=== PATIENT | male | born 1960 | race Caucasian/White ===

== ENCOUNTER 2016-09-01 05:56 | Emergency (ER) | payer MEDICARE ==
[2016-09-01] MEDS ORDERED: Ketorolac INJ* 60 MG/2 ML VIAL IM ONE (07:45)
--- NOTE | 2016-09-01 08:25 | RAD ---
INDICATION: LEFT side jaw pain and RIGHT-sided rib pain post fall on Friday while shoveling. COMPARISON: None. TECHNIQUE: Multidetector CT images foramen magnum to lung apices without contrast. Multiplanar reformation. REPORT: Negative for vertebral body or posterior element fracture at any level. Negative for facet subluxation at any level. Negative for paravertebral hematoma. Multilevel vertebral endplate osteophytosis most prominent at C5-C6 anteriorly. Negative for significant disc space narrowing. Multilevel mild facet joint osteoarthritis. Suggestion of early facet joint ankylosis at T1-T2 on the RIGHT. Congenitally short pedicles predispose to acquired central canal stenosis. At C3-C4, C4-C5, and C5-C6 mild dorsal disc osteophyte complexes superimposed on congenitally short pedicles results in mild acquired central canal stenosis. IMPRESSION: Negative for traumatic cervical spine injury. Multilevel mild acquired central canal stenosis.
--- NOTE | 2016-09-01 08:53 | RAD ---
Indication: Fall on Friday. LEFT side jaw and RIGHT chest/rib pain post fall. Comparison: None. Technique: Noncontrast CT vertex of skull through foramen magnum. Report: Unremarkable cerebral sulci, ventricles, and basal cisterns. Low suspicion 3 mm hypodensity at the LEFT frontal lobe periventricular white matter at the level of the hoyt radiata may represent a normal variant prominent perivascular space or chronic lacunar infarct. Negative for rodriguez matter white matter obscuration, intra or extra-axial hemorrhage, or mass effect. Unremarkable orbital contents. RIGHT orbital floor fracture with minimal inferior herniation of orbital fat appears chronic. No acute fracture of the skull base or calvarium evident. Indolent thickening of the inner table of the frontal bone noted. Negative for scalp hematoma. IMPRESSION: No evidence for traumatic brain injury or acute intracranial process. Low suspicion 3 mm hypodensity at the LEFT frontal lobe periventricular white matter at the level of the hoyt radiata may represent a normal variant prominent perivascular space or chronic lacunar infarct.
--- NOTE | 2016-09-01 09:00 | RAD ---
INDICATION: LEFT side jaw and RIGHT side rib pain post fall on Friday. COMPARISON: CT brain and cervical spine of the same date. TECHNIQUE: Multidetector CT base of the skull through mandible without contrast. Multiplanar reformation. REPORT: RIGHT orbital floor blowout fracture with minimal inferior herniation of pelvic fat appears chronic. No acute orbital margin, maxillary sinus, zygomatic arch, nasal, pterygoid plates, base of maxilla, or mandible fracture evident. Normal temporal mandibular joint alignment. Arthropathy at the bilateral temporomandibular joints with mildly irregular contour of the subchondral bone at the mandibular condyles. Negative for soft tissue hematoma. Negative for edema or inflammatory change within the orbital fat. Clear paranasal sinuses and mastoid air spaces. IMPRESSION: No acute maxillofacial fracture or temporomandibular joint articular malalignment. Negative for soft tissue hematoma.
--- NOTE | 2016-09-01 09:03 | RAD ---
Indication: RIGHT shoulder pain following fall sustained while shoveling last week. History of dislocation and relocation. Comparison: None. Technique: Internal and external rotation AP and scapular Y views RIGHT shoulder Report: Normal acromioclavicular and glenohumeral joint alignment. Moderate osteophytosis and subchondral sclerosis and cystic change at the acromioclavicular joint. Reference the internal rotation view there is suggestion of a mild Hill-Sachs impaction fracture at the posterior lateral margin of the humeral head. Mild glenohumeral joint osteophytosis. Mild soft tissue edema over the cephalad margin of the shoulder. IMPRESSION: 1. Mild age indeterminant Hill-Sachs impaction fracture. No definitive acute features. 2. Osteoarthritis.
--- NOTE | 2016-09-01 09:09 | RAD ---
INDICATION: Pain post fall. COMPARISON: April 23, 2006 TECHNIQUE: Dual energy PA and routine lateral views of the chest were obtained. REPORT: No thoracic fracture evident. Multilevel degenerative spondylosis of the thoracic spine with multilevel bridging syndesmophytes anteriorly consistent with Diffuse Idiopathic Skeletal Hyperostosis (DISH). Mild consolidation at the LEFT lung base may represent atelectasis or pneumonia. Negative for pleural effusion or pneumothorax. The heart, pulmonary vasculature, and mediastinal contours are unremarkable. IMPRESSION: 1. No traumatic thoracic injury evident. 2. Mild consolidation at the LEFT lung base may represent atelectasis or pneumonia. Follow-up chest radiograph in 4-6 weeks suggested for reassessment. In absence of resolution on short interval follow-up a chest CT would be warranted to exclude a mass.
[2016-09-01 10:15] VITALS: BP 124/109
--- NOTE | 2016-09-01 11:07 | ED ---
Laura Madsen SooYoung, scribed for Elliot Luciano MD on 09/01/16 at 0743 . Complex/Multi-Sys Presentation - HPI Summary HPI Summary: A 56 y/o M presents to ED with c/o multiple injuries onset three days ago. Pt fell backwards off a deck onto concrete below while shoveling snow. He hit his head and landed on his R-side. The shovel handle hit him on the L side of his neck and face. He dislocated his R shoulder on the fall, but a family member was able to pop-it back in. He states his shoulder feels OK now. He has R lower rib pain and bruising. Pt took three advil this AM, states having difficulty sleeping at night. Negative dyspnea. - History Of Current Complaint Chief Complaint: EDTraumaMultiple Time Seen by Provider: 09/01/16 07:26 Hx Obtained From: Patient Onset/Duration: Sudden Onset, Lasting Days, Still Present Timing: Constant Severity Currently: Moderate Severity Initially: Moderate - Allergies/Home Medications Allergies/Adverse Reactions: Allergies Allergy/AdvReac Type Severity Reaction Status Date / Time No Known Allergies Allergy Verified 08/30/15 10:05 PMH/Surg Hx/FS Hx/Imm Hx Previously Healthy: No Endocrine/Hematology History: Denies: Hx Diabetes Cardiovascular History: Reports: Hx Hypertension Denies: Hx Pacemaker/ICD Respiratory History: Reports: Hx Sleep Apnea Denies: Hx Asthma Musculoskeletal History: Reports: Hx Congenital Bone Abnormalities - Rickets, born bow legged Sensory History: Denies: Hx Contacts or Glasses, Hx Hearing Aid Opthamlomology History: Denies: Hx Contacts or Glasses Neurological History: Reports: Hx Migraine - OCCASSIONAL. MAYBE 1x MONTH, RELIEVED WITH OTC MEDS Psychiatric History: Denies: Hx Panic Disorder - Surgical History Surgery Procedure, Year, and Place: & SURGERIES ON BOTH LEGS DUE TO DEFECT [facility]. UMBILICAL HERNIA [facility]. LEFT KNEE SCOPE ANUPAM. 12/2011 BILATERAL INGINAL HERNIA REPAIRS [facility] Hx Anesthesia Reactions: No Infectious Disease History: No Infectious Disease History: Reports: Hx Hepatitis - Hep C Denies: Traveled Outside the [place] in Last 30 Days - Family History Known Family History: Negative: Cardiac Disease, Diabetes - Social History Occupation: Unemployed - [employer] Alcohol Use: Occasionally Hx Substance Use: No Substance Use Type: Reports: None Hx Tobacco Use: Yes Smoking Status (MU): Former Smoker Type: Cigarettes Have You Smoked in the Last Year: Yes - quit 1 month ago Review of Systems Positive: Other - pos: L jaw pain Positive: Other - neg: dyspnea Positive: Other - pos: pain and bruising at R lower ribs All Other Systems Reviewed And Are Negative: Yes Physical Exam Triage Information Reviewed: Yes Vital Signs On Initial Exam: Initial Vitals BP 154/115 09/01/16 06:03 Vital Signs Reviewed: Yes Appearance: Positive: Well-Appearing, No Pain Distress Skin: Positive: Warm, Skin Color Reflects Adequate Perfusion, Dry Head/Face: Positive: Normal Head/Face Inspection Eyes: Positive: Normal ENT: Positive: Normal ENT inspection Neck: Positive: Supple, Tenderness @ - L mandibular condyle and mandibular angle ; is able to open his jaw only a little Respiratory/Lung Sounds: Positive: Breath Sounds Present, Other - pos: few crackles on R Cardiovascular: Positive: RRR Abdomen Description: Positive: Nontender, Soft Bowel Sounds: Positive: Present Musculoskeletal: Positive: Pain @ - R lateral inerfior rib border. Neurological: Positive: Normal Psychiatric: Positive: Normal, Affect/Mood Appropriate - [place] Coma Scale Coma Scale Total: 15 Diagnostics - Vital Signs Vital Signs Temp Pulse Resp BP Pulse Ox 09/01/16 07:00 72 125/84 95 09/01/16 06:06 74 97 09/01/16 06:04 99.1 F 81 12 154/115 96 09/01/16 06:03 154/115 - Laboratory Lab Statement: Any lab studies that have been ordered have been reviewed, and results considered in the medical decision making process. - Radiology Shoulder XR Xray Interpretation: No Acute Changes - IMPRESSION: 1. Mild age indeterminant Hill-Sachs impaction fracture. No definitive acute features. 2. Osteoarthritis. Radiology Interpretation Completed By: Radiologist CXR Xray Interpretation: Positive (See Comments) - IMPRESSION: 1. No traumatic thoracic injury evident. 2. Mild consolidation at the LEFT lung base may represent atelectasis or pneumonia. Follow-up chest radiograph in 4-6 weeks suggested for reassessment. In absence of resolution on short interval follow- up a chest CT would be warranted to exclude a mass. Radiology Interpretation Completed By: Radiologist - CT C-SPINE CT CT Interpretation: No Acute Changes - IMPRESSION: Negative for traumatic cervical spine injury. Multilevel mild acquired central canal stenosis. CT Interpretation Completed By: Radiologist Brain CT CT Interpretation: Positive (See Comments) - IMPRESSION: No evidence for traumatic brain injury or acute intracranial process. Low suspicion 3 mm hypodensity at the LEFT frontal lobe periventricular white matter at the level of the hoyt radiata may represent a normal variant prominent perivascular space or chronic lacunar infarct. CT Interpretation Completed By: Radiologist Maxillofacial CT Interpretation: No Acute Changes - IMPRESSION: No acute maxillofacial fracture or temporomandibular joint articular malalignment. Negative for soft tissue hematoma. CT Interpretation Completed By: Radiologist Re-Evaluation - Re-Evaluation 1 Re-Evaluation Time: 09:43 Change: Improved Comment: Discussing diagnostic results with pt. Complex Multi-Symp Course/Dx Course Of Treatment: Mr. Lucas got hurt pretty bad last . He hit the left side of his jaw with the shovel handle when he fell and although he has no fracture, he is certainly in danger of developin TMJ syndrome. I talked to him about soft diet etc. He dislocated his right shoulder and had it reduced roughly in the field by a friend. He suffered a Hill-Sachs compression fx and he is given a shoulder immobilizer and F/U. He also bruised his ribs on the right. - Diagnoses Provider Diagnoses: shoulder dislocation, TMJ contusion, Rib contusion Discharge - Discharge Plan Condition: Stable Disposition: HOME Prescriptions: HYDROcodone/ACETAMIN 5-325 MG* [[place] 5-325 TAB*] 1 tab PO Q6H PRN #20 tab MDD 4 PRN Reason: Pain Patient Education Materials: Hydrocodone/Acetaminophen (By mouth), Shoulder Dislocation (ED) Referrals: Eleuterio Deng MD [Primary Care Provider] - As Soon As Possible Additional Instructions: You've injured your temporal mandibular joint on the left side of your jaw. In order for this to heal appropriately, you need to follow-up with your doctor for a referral for physical therapy; eat a soft diet; and apply warm compresses to your jaw. The documentation as recorded by the Laura capone SooYoung accurately reflects the service I personally performed and the decisions made by me, Elliot Luciano MD.
== END 2016-09-01 10:27 | disposition home or self-care (01) ==
LOC: ED 05:56
DX: S43.004A Unspecified dislocation of right shoulder joint, initial encounter (principal); S20.219A Contusion of unspecified front wall of thorax, initial encounter; S00.83XA Contusion of other part of head, initial encounter; W19.XXXA Unspecified fall, initial encounter; Y93.9 Activity, unspecified; Y92.9 Unspecified place or not applicable; R68.84 Jaw pain
CPT/HCPCS: 70450; 70486; 71020; 72125; 99282; J1885

== ENCOUNTER 2016-12-10 11:20 | Day surgery (SDC) | payer MEDICARE ==
--- NOTE | 2016-12-02 16:47 | HP ---
CC: Dr. Eleuterio Deng; Dr. George Alicia; Dr. Patiño ADMISSION HISTORY AND PHYSICAL: DATE OF SURGERY/ADMISSION: 12/10/16 PATIENT OF: Piter Cohn MD (DICTATED BY CEE RESTREPO) CHIEF COMPLAINT: Recurrent right inguinal hernia. HISTORY OF PRESENT ILLNESS: Mr. Lucas is a pleasant 56-year-old gentleman who returned to the office today to discuss a possible right inguinal hernia. The patient apparently noticed a bulge in his right groin approximately 3 weeks ago while getting out of the shower. He denied any prior straining, coughing, sneezing, or any heavy weight lifting prior to the occurrence of this hernia. He notes that he is able to push the hernia bag in whenever it protrudes out. He denies any scrotal swelling, testicular pain, changes in the bowel habits, dysuria, hematuria or any other associated symptoms. The patient is well known to our practice from prior hernia repairs including bilateral laparoscopic inguinal hernias repaired back in 2011 followed by open repair of left inguinal hernia due to recurrence. The patient returned to the office today to evaluate for possible right inguinal hernia and to discuss surgical repair. He otherwise reports doing really well since his last office visit. He denies any other hernias or masses. He has been on disability given his chronic history of bilateral hip and knee pain. He also reports that he has been doing well overall , quit smoking since last June and has been overall active given his significant orthopedic disabilities. PAST MEDICAL HISTORY: As mentioned above, significant for multiple degenerative joint disease of the pelvis and hips. He also has a history of sprained shoulders, as well as localized osteoarthritis of the knees and hips. He also has a history of chronic hepatitis C and essential hypertension. PAST SURGICAL HISTORY: Significant for umbilical hernia repair back in 2010, as well as laparoscopic bilateral inguinal hernia repair back in 2011 that was followed a year later with an open repair of a recurrent left inguinal hernia. The patient also had multiple knee arthroscopies, most recently in 2003. He also had bilateral leg surgeries back in the 60s and 70s due to history of rickets. CURRENT MEDICATIONS: His medications at home include: 1. Chlorthalidone 25 mg once daily. 2. Naproxen 500 mg once b.i.d. 3. Gabapentin 600 mg 1 to 2 tabs every day at bedtime as directed. ALLERGIES: He has no known drug allergies. FAMILY HISTORY: Noncontributory. SOCIAL HISTORY: The patient is . He lives at home. He is disabled due to his prior hips and knee pain and he used to do construction work in the past. He is a former smoker who quit 6 months ago, used to smoke half a pack per day. He drinks alcohol rarely, and denies any illicit drug use. REVIEW OF SYSTEMS: See HPI, otherwise negative. He denies any fever, chills, night sweats, or recent weight loss. No headache, dizziness, blurred vision, sore throat, or any upper respiratory symptoms. No cough, shortness of breath, palpitation, or chest pain. He denies any back pain, flank pain, dysuria, hematuria, or urinary frequency. He admits to right inguinal hernia, but denies any trouble with bowel habits, nausea, vomiting, or significant abdominal pain. His pain usually worse upon bending over. PHYSICAL EXAMINATION GENERAL: He is a pleasant, obese, middle aged gentleman, appears healthy and in no acute distress or discomfort at this time. VITAL SIGNS: His vitals today revealed a blood pressure of 128/84, pulse of 78 , respirations of 18, temperature of 98.6. He is 180 pounds on 5-foot 2-inch frame with BMI of 33. HEENT: Sclerae anicteric. PERRLA. EOMs intact. Oropharynx is pink, moist with no exudate. NECK: Supple. Trachea midline. No cervical adenopathy, thyromegaly, or JVD. LUNGS: Clear to auscultation bilaterally. No rales, wheezes, or rhonchi. HEART: Regular rate and rhythm. Normal S1 and S2 without rubs, murmurs, or gallops. BACK: With normal curvature. No CVA tenderness. ABDOMEN: Soft, round, nontender, and nondistended. The patient was examined in the standing position, revealed a moderate size right inguinal hernia that was easily reducible and nontender on examination. Scrotum was normal. No evidence of any indirect hernia through the scrotum. There are no other hernias , masses, or hepatosplenomegaly. The patient was examined again in the supine position and was able to reveal a small size deficit to the right groin, but again there was no evidence of incarceration or strangulation noted. No other hernias or masses. No hepatosplenomegaly. EXTREMITIES: Without cyanosis, clubbing, or edema. RECTAL: Deferred at this time. NEUROLOGIC: Grossly intact. IMPRESSION: A 56-year-old gentleman with recurrent right inguinal hernia. PLAN: I went on and discussed with the patient proceeding with hernia repair today. The patient was seen earlier today by Dr. Cohn who examined the patient and agreed to the plan of care. We have recommended proceeding with an open repair of right inguinal hernia with mesh given his known history of hernias and the bilateral repair that was done laparoscopically 4 years ago. The rationale, indications, risks, and benefits of performing an open right inguinal hernia were discussed with him today. The risks include but not limited to infection, bleeding, or injury to adjacent structures. He appears to understand and wishes to proceed with surgery. Given his known history of peripheral vascular disease and hypertension, we will get an EKG as well as a baseline blood work. The patient has been doing well recently and he is scheduled to see his medical doctor next month; however, we do not see any need for medical clearance since we can perform surgery under local anesthetic as well as [id number] sedation. All his questions were answered and he is scheduled to do surgery next week and we will follow him up accordingly. CEE RESTREPO [id number]/[facility] #: [id number] MTDD
[~2016-12-10 11:20] MED LIST: Buffered Lidocaine 0.9% SYRIN* 5 ML/SYR SYRINGE INTRADERM ONE; Famotidine IV* 10 MG/ML 2 ML (20 mg) IV ONE; Morphine INJ* 2 MG/ML 1 ML SYRINGE IV PRN; PROCHLORPERAZINE INJ 5 MG/ML 2 ML VIAL IV PRN; fentaNYL* 50 MCG/ML 2 ML VIAL (100 MCG VIAL) IV PRN; oxyCODONE/Acetamin 5/325 MG* TAB PO PRN
[2016-12-10] MEDS ORDERED: KETAMINE HCL* 50 MG/ML 10 ML VIAL ONE (11:23)
[2016-12-10] MEDS ORDERED: fentaNYL* 50 MCG/ML 2 ML VIAL (100 MCG VIAL) ONE ×2 (11:23→13:11)
[2016-12-10] MEDS ORDERED: Midazolam* 1 MG/ML 5 ML VIAL (5 MG) ONE (11:23)
[2016-12-10] MEDS ORDERED: Famotidine IV* 10 MG/ML 2 ML (20 mg) ONE (11:25)
[2016-12-10] MEDS ORDERED: Buffered Lidocaine 0.9% SYRIN* 5 ML/SYR SYRINGE ONE (11:26)
[2016-12-10] MEDS ORDERED: ceFAZolin 2 GM PREMIX(*) 2 GM/50 ML BAG IVPB ONE (11:26)
[2016-12-10] MEDS ORDERED: Lidocaine 1% INJ* 10 MG/ML 30 ML SDV ONE (12:28)
[2016-12-10] MEDS ORDERED: Bupivacaine 0.5% W/EPI SDV* 10 ML VIAL INJ ONE (12:28)
[2016-12-10] MEDS ORDERED: Labetalol IV* 5 MG/ML 20 ML VIAL ONE (13:02)
[2016-12-10] MEDS ORDERED: Midazolam* 1 MG/ML 2 ML VIAL (2 MG) ONE (13:11)
[2016-12-10] MEDS ORDERED: hydrALAZINE IV* 20 MG/ML VIAL ONE (13:36)
[2016-12-10] MEDS ORDERED: Lidocaine 2% PF * 5 ML VIAL ONE (13:55)
[2016-12-10] MEDS ORDERED: Propofol* 10 MG/ML 20 ML BTL IV PUSH ONE (13:55)
[2016-12-10] MEDS ORDERED: Ketorolac INJ* 30 MG/ML 1 ML VIAL ONE (14:09)
[2016-12-10] MEDS ORDERED: oxyCODONE/Acetamin 5/325 MG* TAB PO PRN (14:19)
[2016-12-10 15:02] VITALS: BP 134/81
[2016-12-10] MEDS ORDERED: oxyCODONE/Acetamin 5/325 MG* TAB ONE (15:04)
--- NOTE | 2016-12-11 14:31 | OP ---
CC: Eleuterio Deng MD * DATE OF OPERATION: 12/10/16 - [facility] DATE OF : 58 SURGEON: Piter Cohn MD. SAIL FINISHER MACHINE: CEE Rodriguez ANESTHESIOLOGIST: Dr. Ahn. ANESTHESIA: Local MAC. PRE-OP DIAGNOSIS: Recurrent right inguinal hernia. POST-OP DIAGNOSIS: Recurrent right inguinal hernia. OPERATIVE PROCEDURE: Open repair right inguinal hernia with mesh. ESTIMATED BLOOD LOSS: Minimal. IV FLUIDS: Crystalloids. SPECIMEN: None. DRAINS: None. COMPLICATIONS: None. COUNTS: The instrument, needle, and sponge counts were correct. DESCRIPTION OF PROCEDURE: The patient was brought to the operating room, placed on the table supine. Sequential compression devices were placed in both lower extremities. Intravenous sedation was administered. The abdomen was prepped and draped in the usual sterile fashion. Time-out was performed. Local anesthetic was infiltrated as a field block in the groin on the right side. An oblique incision was created and the subcutaneous tissues were divided with cautery. External oblique aponeurosis was divided along the line of its fibers due to the superficial ring. Inspection beneath this revealed no evident nerve. The aponeuroses were reflected back upon themselves and retractors placed. The contents of the inguinal canal were isolated at the level of the pubic tubercle with a quarter-inch Nell drain. A direct inguinal hernia was noted and upon inspection of the cord structures, there was noted to be indirect inguinal hernia as well. The indirect sac was elevated. Cord structures were freed from it. The sac was dissected back to the deep ring, twisted upon itself, ligated with 2-0 Polysorb suture ligature and then divided. The proximal sac was allowed to retract into the abdominal cavity. A polypropylene plug and patch was then fashioned from 6 x 6 inch polypropylene and the plug was placed into the deep space and sutured to the overlying musculare with 2-0 Polysorb. The on-lay patch was positioned and it was sutured to the pubic tubercle, conjoint tendon and shelving edge of the inguinal ligament with interrupted 2-0 Polysorb sutures. The mesh was cut laterally to allow egress of the spermatic cord and the mesh was reconstituted laterally with 2-0 Surgipro. The lateral tails were tucked beneath external oblique aponeurosis, which was then closed with 2-0 Polysorb. The subcutaneous tissues were closed with 3-0 Polysorb in an interrupted fashion. The skin was closed with 4-0 Monocryl in a subcuticular fashion. Steri -Strips were applied. The patient tolerated the procedure well. He was awakened and transferred to recovery room in stable condition. [id number]/[facility] #: [id number] MTDD
== END 2016-12-10 15:25 | disposition home or self-care (01) ==
LOC: OR 11:20
PROVIDERS: ATTEND Surgery
DX: K40.91 Unilateral inguinal hernia, without obstruction or gangrene, recurrent (principal); I10 Essential (primary) hypertension; B18.2 Chronic viral hepatitis C; M19.90 Unspecified osteoarthritis, unspecified site; Z87.891 Personal history of nicotine dependence
CPT/HCPCS: A9270-GY; C1781; J0360; J0690; J1885; J2001; J2250; J2704; J3010

== ENCOUNTER 2017-06-06 13:40 | Emergency (ER) | payer MEDICARE ==
[2017-06-06 13:51] VITALS: BP 165/98
[2017-06-06] MEDS ORDERED: Triamcinolone Acetonide* 40 MG/ML 1 ML VIAL IM ONE (13:59)
--- NOTE | 2017-06-06 14:18 | UC ---
Skin Complaint HPI - HPI Summary HPI Summary: 57 yo male squeezed a cyst on his back now red and swollen no fever no hx MRSA - History of Current Complaint Chief Complaint: UCSkin Time Seen by Provider: 06/06/17 13:55 Stated Complaint: SORE ON BACK Hx Obtained From: Patient Onset/Duration: Gradual Onset, Lasting Days Timing: Constant Onset Severity: Mild Current Severity: Mild Character: Swelling, Pain, Redness, Raised Aggravating Factor(s): Touch - Allergy/Home Medications Allergies/Adverse Reactions: Allergies Allergy/AdvReac Type Severity Reaction Status Date / Time No Known Allergies Allergy Verified 06/06/17 13:51 Home Medications: Home Medications Tramadol HCl [Tramadol HCl ER] 1 tab PO BID PRN 06/06/17 [History Confirmed ] Review of Systems Constitutional: Negative Skin: Negative Eyes: Negative ENT: Negative Respiratory: Negative Cardiovascular: Negative Gastrointestinal: Negative Genitourinary: Negative Motor: Negative Neurovascular: Negative Musculoskeletal: Negative Neurological: Negative Psychological: Negative Is Patient Immunocompromised?: No All Other Systems Reviewed And Are Negative: Yes PMH/Surg Hx/FS Hx/Imm Hx Previously Healthy: Yes Cardiovascular History: Hypertension - Surgical History Surgical History: Yes Surgery Procedure, Year, and Place: & SURGERIES ON BOTH LEGS DUE TO DEFECT [facility]. UMBILICAL HERNIA [facility]. LEFT KNEE SCOPE ANUPAM. 12/2011 BILATERAL INGINAL HERNIA REPAIRS-SEVERAL TIMES [facility]. 2017 right inguinal hernia repair with mesh. Right Shoulder Surgery - Family History Known Family History: Positive: Hypertension Negative: Cardiac Disease, Diabetes - Social History Alcohol Use: Occasionally Alcohol Amount: 1-2 drinks a week Substance Use Type: None Smoking Status (MU): Light Every Day Tobacco Smoker Type: Cigarettes Amount Used/How Often: 6-7cig/day Have You Smoked in the Last Year: Yes - quit 1 month ago When Did the Patient Quit Smoking/Using Tobacco: 02/2017 - Immunization History Most Recent Influenza Vaccination: NOT UTD Physical Exam Triage Information Reviewed: Yes Appearance: Well-Appearing, No Pain Distress, Well-Nourished Vital Signs: Initial Vital Signs Temp 99.1 F 06/06/17 13:45 Pulse 74 06/06/17 13:45 Resp 16 06/06/17 13:45 BP 165/98 06/06/17 13:45 Pulse Ox 97 12/22/17 13:45 Vital Signs Reviewed: Yes ENT: Positive: Hearing grossly normal. Negative: Nasal congestion, Nasal drainage, Trismus, Hoarse voice Neck: Positive: Supple Respiratory: Positive: Lungs clear, Normal breath sounds, No respiratory distress Cardiovascular: Positive: RRR, No Murmur Musculoskeletal: Positive: ROM Limited @ - right shoulder Neurological: Positive: Alert Psychological Exam: Normal Course/Dx - Course Course Of Treatment: 10 mg kenalog injected intralesionally by me. pt informed that he needs to return for worsening symptoms. may need cyst removed in 3-6 months - Diagnoses Provider Diagnoses: inlammed sebacious cyst right back Discharge - Discharge Plan Condition: Stable Disposition: HOME Prescriptions: DOXYcycline CAP(*) [DOXYcycline 100MG CAP(*)] 100 mg PO BID #20 cap Patient Education Materials: Epidermal Inclusion Cysts (ED) Referrals: Eleuterio Deng MD [Primary Care Provider] - Additional Instructions: warm compresses don't squeeze recheck in 3-5 days if not better Images Front/Back of Body, Lg (Reagan): 1 - inlammed sebacious cyst with overlying redness
--- OUTSIDE RECORDS SUMMARY | 2017-06-06 14:37 | XMS REPORT ---
:1960 External Reference #:[id number] Author Organization [facility] Address [address] [address] Phone [phone] Care Team Providers Name Role Phone Eleuterio Deng III, MD Primary Care Physician Unavailable Payers Type Date Identification Numbers Payment Provider Subscriber Medicare Primary Effective: Policy Number: Medicare Tommie Lucas 2015 [id number] PayID: [id number] [address] [place] [address] Commercial Effective: Policy Number: Total Care/Rupert Lucas 2013 [id number] [facility] Expires: 2015 PayID: [id number] [address] [address] [place] [address] Problems Date Description Provider Status Onset: 11/28/2011 Inguinal hernia without obstruction Eleuterio Deng M.D. Active AND without gangrene Onset: 10/05/2013 Benign essential hypertension Eleuterio Deng M.D. Active Onset: 07/05/2014 Chronic hepatitis C Eleuterio Deng M.D. Active Onset: 01/04/2015 Localized osteoarthrosis Gloria Patiño M.D. Active Onset: 01/04/2015 Degenerative joint disease of pelvis Gloria Patiño M.D. Active Onset: 09/09/2016 Localized, primary osteoarthritis Gloria Patiño M.D. Active Onset: 09/17/2016 Closed traumatic dislocation of joint George Alicia MD Active of shoulder region Onset: 09/17/2016 Sprain of shoulder and upper arm George Alicia MD Active Onset: 09/17/2016 Injury of shoulder region George Alicia MD Active Onset: 04/22/2017 Bicipital tenosynovitis George Alicia MD Active Onset: 04/22/2017 Full thickness rotator cuff tear George Alicia MD Active Family History Date Family Member(s) Problem(s) Comments General Heart Disease Siblings 6 siblings; 3 brother, 3 sisters 3 brothers all with HTN Social History Type Date Description Comments Marital Status Occupation Disabled due to hips and knees Previously did construction work ETOH Use Rarely consumes alcohol Smoking Patient is a former smoker Quit Jun 2016; less than 10/day then. Max <1ppd. Began age 29 Exercise Type/Frequency Exercises regularly walks Allergies, Adverse Reactions, Alerts Date Description Reaction Status Severity Comments 11/28/2011 NKDA active Medications Medication Date Status Form Strength Qnty SIG Indications Ordering Provider Tramadol HCL 05/22/ Active Tablets 50mg 30tabs 1-2 2016 tablet by riya Alicia MD every 12 hours as needed pain Percocet 04/22/ Active Tablets 5-325mg 45tabs take 1 M75.121 2016 tabs as ramesh Alicia MD for pain every 4 hours. do not combine with tylenol Percocet 04/07/ Active Tablets 5-325mg 30tabs 1 tab by eris Alicia, every 4-6 MD hours as needed pain Keflex 04/07/ Active Capsules 500mg 12caps take 1 2016 tab by riya Alicia MD four times a day x 3 days Chlorthalidone 06/23/ Active Tablets 25mg 30tabs 1 by R03.0 Eleuterio Deng, daily Blessing Naproxen / Active 500mg 1 tablet Unknown 0000 bid Gabapentin / Active Tablets 600mg 1-2 tabs Unknown 0000 by mouth every day at bedtime as directed Oxycodone-Acetam 12/02/ Hx Tablets 5-325mg 15tabs 1-2 tabs Piter inophen 2017 - every 6 M[place], 01/12/ hours as , FACS 2016 needed for pain Diazepam 04/14/ Hx Tablets 5mg 2tabs 1 tab tid Eleuterio Yun 2013 - Sowmya, 04/27/ M.D. 2013 Percocet 02/07/ Hx Tablets 5-325mg 80tabs No Longer Gloria 2014 - Taking Haroon, This. 1-2 M.D. 2013 tabs by mouth bid as needed for pain Ibuprofen // Hx Capsules 600mg 1 tab in Unknown 0000 - am, 1 tab 04/27/ in pm 2013 Ciprofloxacin /00/ Hx Tablets 500mg 14tabs 1 po bid Unknown HCL 0000 - 2013 Hydrocodone/Acet / Hx Tablets 5-325mg 40tabs 1-2 po Unknown aminophen 0000 - qid prn pain 2013 Naproxen / Hx Tablets 500mg 30tabs 1 po bid Unknown 0000 - prn 2013 Sovaldi // Hx Tablets 400mg Unknown 0000 - 2013 Pegasys Proclick / Hx Solution 180mcg/0.5 Unknown 0000 - ML 2013 Ribavirin /00/ Hx Tablets 200mg Unknown 0000 - 2013 Oxycontin /00/ Hx Tab ER 12H 10mg 28tabs by mouth Unknown 0000 - Abuse-Det every 12 1112/ hours 2013 Gabapentin /00/ Hx Capsules 300mg 120cap 1 3-4 Unknown 0000 - s times po 10/28/ prn 2016 Medications Administered in Office Medication Date Status Form Strength Qnty SIG Indications Ordering Provider Triamcinolone 10/29/ Administered Injection Zaneb (Kenalog) 2016 MD Ravin Depomedrol 40MG 09/09/ Administered Injection Gloria 2016 Blessing Patiño Influenza Virus 02/28/ Administered Injection Unknown Vaccine 2014 Depomedrol 80MG 02/07/ Administered Injection Gloria 2013 Blessing Patiño Immunizations CPT Code Status Date Vaccine Lot # [id number] Given 10/05/2013 Pneumonia Vaccine [id number] Given 06/23/2013 Influenza Virus 3Yrs & Over [id number] Given 09/14/2012 Tetanus And Diptheria (Td) For Adult Use Preservative Free Vital Signs Date Vital Result Comment 05/27/2017 Height 62 inches 5'2" Weight 183.00 lb BP Systolic 134 mmHg BP Diastolic 82 mmHg Respiratory Rate 20 /min Pain Level 9 BMI (Body Mass Index) 33.5 kg/m2 04/22/2017 Height 62 inches 5'2" Weight 183.00 lb Heart Rate 70 /min Respiratory Rate 18 /min Body Temperature 98.3 F Pain Level 8 BMI (Body Mass Index) 33.5 kg/m2 03/11/2017 Height 62 inches 5'2" Weight 183.00 lb BP Systolic 130 mmHg BP Diastolic 82 mmHg Respiratory Rate 18 /min Body Temperature 97.2 F Pain Level 8 BMI (Body Mass Index) 33.5 kg/m2 01/13/2017 Height 62 inches 5'2" Weight 199.00 lb Heart Rate 76 /min BP Systolic Sitting 144 mmHg BP Diastolic Sitting 82 mmHg Body Temperature 98.0 F O2 % BldC Oximetry 94 % BMI (Body Mass Index) 36.4 kg/m2 12/18/2016 Height 62 inches 5'2" Weight 200.00 lb Heart Rate 86 /min Respiratory Rate 16 /min Body Temperature 98.5 F BMI (Body Mass Index) 36.6 kg/m2 12/02/2016 Height 62 inches 5'2" Weight 180.00 lb Heart Rate 78 /min BP Systolic 128 mmHg BP Diastolic 84 mmHg Respiratory Rate 18 /min Body Temperature 98.6 F BMI (Body Mass Index) 32.9 kg/m2 10/29/2016 Height 62 inches 5'2" Weight 183.00 lb Heart Rate 72 /min BP Systolic 180 mmHg BP Diastolic 102 mmHg Respiratory Rate 13 /min Pain Level 8 BMI (Body Mass Index) 33.5 kg/m2 09/17/2016 Height 62 inches 5'2" Weight 183.00 lb Heart Rate 74 /min BP Systolic 125 mmHg BP Diastolic 76 mmHg Body Temperature 98.4 F Pain Level 8 BMI (Body Mass Index) 33.5 kg/m2 09/09/2016 Height 62 inches 5'2" Weight 194.00 lb with shoes Heart Rate 64 /min BP Systolic Sitting 178 mmHg Rue reg cuff BP Diastolic Sitting 102 mmHg Rue reg cuff Respiratory Rate 20 /min Body Temperature 97.3 F O2 % BldC Oximetry 97 % BMI (Body Mass Index) 35.5 kg/m2 09/09/2016 Height 62 inches 5'2" Weight 179.00 lb Heart Rate 81 /min BP Systolic 160 mmHg BP Diastolic 95 mmHg Body Temperature 97.2 F Pain Level 10 BMI (Body Mass Index) 32.7 kg/m2 09/05/2016 Height 63 inches 5'3" Weight 200.00 lb Heart Rate 86 /min BP Systolic 180 mmHg BP Diastolic 88 mmHg Respiratory Rate 18 /min Body Temperature 98.1 F Pain Level 8 BMI (Body Mass Index) 35.4 kg/m2 01/02/2016 Height 63 inches 5'3" Weight 200.25 lb Heart Rate 64 /min BP Systolic 128 mmHg BP Diastolic 76 mmHg Body Temperature 98.9 F O2 % BldC Oximetry 96 % BMI (Body Mass Index) 35.5 kg/m2 01/04/2015 Height 63.75 inches 5'3.75" Weight 172.00 lb Pain Level 10 BMI (Body Mass Index) 29.8 kg/m2 01/02/2015 Height 63.75 inches 5'3.75" Weight 172.75 lb Heart Rate 73 /min BP Systolic Sitting 134 mmHg BP Diastolic Sitting 80 mmHg O2 % BldC Oximetry 94 % BMI (Body Mass Index) 29.9 kg/m2 07/05/2014 Height 63.75 inches 5'3.75" Weight 171.50 lb Heart Rate 60 /min BP Systolic Sitting 124 mmHg BP Diastolic Sitting 78 mmHg Body Temperature 97.8 F BMI (Body Mass Index) 29.7 kg/m2 06/20/2014 Height 63 inches 5'3" Weight 173.00 lb Heart Rate 76 /min BMI (Body Mass Index) 30.6 kg/m2 04/28/2014 Heart Rate 71 /min BP Systolic 155 mmHg BP Diastolic 102 mmHg 04/14/2014 Weight 173.75 lb Heart Rate 76 /min BP Systolic Sitting 154 mmHg BP Diastolic Sitting 98 mmHg Body Temperature 97.4 F 03/11/2014 Height 62 inches 5'2" Weight 156.00 lb Heart Rate 79 /min Pain Level 8 BMI (Body Mass Index) 28.5 kg/m2 02/07/2014 Height 63 inches 5'3" Weight 168.00 lb Pain Level 9 BMI (Body Mass Index) 29.8 kg/m2 01/05/2014 Height 63 inches 5'3" Heart Rate 83 /min BP Systolic 119 mmHg BP Diastolic 77 mmHg 12/06/2013 Height 63 inches 5'3" Weight 168.00 lb Heart Rate 80 /min BP Systolic 119 mmHg BP Diastolic 88 mmHg BMI (Body Mass Index) 29.8 kg/m2 10/05/2013 Height 63.75 inches 5'3.75" Weight 171.25 lb Heart Rate 76 /min BP Systolic Sitting 156 mmHg BP Diastolic Sitting 98 mmHg Body Temperature 98.4 F BMI (Body Mass Index) 29.6 kg/m2 07/07/2013 Height 63.5 inches 5'3.50" Weight 153.75 lb Heart Rate 72 /min BP Systolic Sitting 142 mmHg 156/90 on home monitor BP Diastolic Sitting 94 mmHg 156/90 on home monitor BMI (Body Mass Index) 26.8 kg/m2 06/23/2013 Height 63.5 inches 5'3.50" Weight 161.00 lb Heart Rate 82 /min BP Systolic Sitting 190 mmHg BP Diastolic Sitting 102 mmHg BMI (Body Mass Index) 28.1 kg/m2 11/28/2011 Height 63.5 inches 5'3.50" Weight 170.25 lb Heart Rate 88 /min BP Systolic Sitting 128 mmHg BP Diastolic Sitting 84 mmHg BMI (Body Mass Index) 29.7 kg/m2 Results Test Date Test Result H/L Range Note Basic Metabolic Panel 03/11/2017 Sodium 141 mmol/L 133-145 Potassium 4.3 mmol/L 3.5-5.0 Chloride 107 mmol/L 101-111 Co2 Carbon Dioxide 32 mmol/L 22-32 Anion Gap 2 mmol/L 2-11 Glucose 92 mg/dL 70-100 Blood Urea Nitrogen 18 mg/dL 6-24 Creatinine 0.99 mg/dL 0.67-1.17 BUN/Creatinine Ratio 18.2 8-20 Calcium 8.8 mg/dL 8.6-10.3 Egfr Non- 77.6 >60 Egfr 99.9 >60 1 CBC Auto Diff 03/11/2017 White Blood Count 8.6 10^3/uL 3.5-10.8 Red Blood Count 5.68 10^6/uL High 4.0-5.4 Hemoglobin 16.6 g/dL 14.0-18.0 Hematocrit 50 % 42-52 Mean Corpuscular Volume 88 fL 80-94 Mean Corpuscular Hemoglobin 29 pg 27-31 Mean Corpuscular HGB Conc 33 g/dL 31-36 Red Cell Distribution Width 15 % 10.5-15 Platelet Count 271 10^3/uL 150-450 Mean Platelet Volume 9 um3 7.4-10.4 Abs Neutrophils 6.0 10^3/uL 1.5-7.7 Abs Lymphocytes 1.6 10^3/uL 1.0-4.8 Abs Monocytes 0.7 10^3/uL 0-0.8 Abs Eosinophils 0.1 10^3/uL 0-0.6 Abs Basophils 0.1 10^3/uL 0-0.2 Abs Nucleated RBC 0.01 10^3/uL Granulocyte % 70.4 % 38-83 Lymphocyte % 19.2 % Low 25-47 Monocyte % 8.0 % 1-9 Eosinophil % 1.6 % 0-6 Basophil % 0.8 % 0-2 Nucleated Red Blood Cells % 0.1 Liver Function Panel 01/13/2017 Total Protein 6.7 g/dL 6.4-8.9 Albumin 4.0 g/dL 3.2-5.2 Globulin 2.7 g/dL 2-4 Albumin/Globulin Ratio 1.5 1-3 Total Bilirubin 0.40 mg/dL 0.2-1.0 Alkaline Phosphatase 89 U/L 34-104 Alt 8 U/L 7-52 Ast 12 U/L Low 13-39 Direct Bilirubin 0.10 mg/dL 0.03-0.18 Indirect Bilirubin 0.3 mg/dL 0.3-1.0 Laboratory test finding 01/13/2017 Afp Tumor Marker 2.5 ng/mL <6.0 2 Hemoglobin A1c (Glyco HGB) 5.9 % Less than 6.0 3 CBC No Diff 12/02/2016 White Blood Count 10.0 10^3/uL 3.5-10.8 4 Red Blood Count 5.22 10^6/uL 4.0-5.4 4 Hemoglobin 15.5 g/dL 14.0-18.0 4 Hematocrit 46 % 42-52 4 Mean Corpuscular Volume 89 fL 80-94 4 Mean Corpuscular Hemoglobin 30 pg 27-31 4 Mean Corpuscular HGB Conc 33 g/dL 31-36 4 Red Cell Distribution Width 15 % 10.5-15 4 Platelet Count 247 10^3/uL 150-450 4 Mean Platelet Volume 8 um3 7.4-10.4 4 Basic Metabolic Panel 12/02/2016 Sodium 138 mmol/L 133-145 4 Potassium 3.7 mmol/L 3.5-5.0 4 Chloride 107 mmol/L 101-111 4 Co2 Carbon Dioxide 26 mmol/L 22-32 4 Anion Gap 5 mmol/L 2-11 4 Glucose 81 mg/dL 70-100 4 Blood Urea Nitrogen 23 mg/dL 6-24 4 Creatinine 0.88 mg/dL 0.67-1.17 4 BUN/Creatinine Ratio 26.1 High 8-20 4 Calcium 8.7 mg/dL 8.6-10.3 4 Egfr Non- 89.3 >60 4 Egfr 114.8 >60 4, 5 Comp Metabolic Panel 10/16/2015 Sodium 139 mmol/L 133-145 Potassium 3.7 mmol/L 3.5-5.0 Chloride 105 mmol/L 101-111 Co2 Carbon Dioxide 28 mmol/L 22-32 Anion Gap 6 mmol/L 2-11 Glucose 104 mg/dL High 70-100 Blood Urea Nitrogen 13 mg/dL 6-24 Creatinine 1.03 mg/dL 0.67-1.17 BUN/Creatinine Ratio 12.6 8-20 Calcium 8.9 mg/dL 8.6-10.3 Total Protein 6.9 g/dL 6.4-8.9 Albumin 4.2 g/dL 3.2-5.2 Globulin 2.7 g/dL 2-4 Albumin/Globulin Ratio 1.6 1-3 Total Bilirubin 0.60 mg/dL 0.2-1.0 Alkaline Phosphatase 86 U/L 34-104 Alt 10 U/L 7-52 Ast 18 U/L 13-39 Egfr Non- 74.7 >60 Egfr 96.1 >60 6 Laboratory test finding 10/16/2015 Afp Tumor Marker 2.0 ng/mL <6.0 7 Hemoglobin A1c (Glyco HGB) 5.6 % Less than 6.0 8 Lipid Profile (Trig/Chol/HDL) 10/16/2015 Triglycerides 97 mg/dL 9 Cholesterol 169 mg/dL 10 HDL Cholesterol 44.9 mg/dL 11 LDL Cholesterol 105 mg/dL 12 Laboratory test finding 07/05/2014 Hemoglobin A1c 4.8 Low 5-7 Lipid Profile (Trig/Chol/HDL) 06/29/2014 Triglycerides 130 mg/dL 13 Cholesterol 165 mg/dL 14 HDL Cholesterol 63.1 mg/dL 15 LDL Cholesterol 76 mg/dL 16 Basic Metabolic Panel 06/29/2014 Sodium 140 mmol/L 133-145 Potassium 4.0 mmol/L 3.5-5.0 Chloride 107 mmol/L 101-111 Co2 Carbon Dioxide 32 mmol/L 22-32 Anion Gap 1 mmol/L Low 2-11 Glucose 105 mg/dL High 70-100 Blood Urea Nitrogen 15 mg/dL 6-24 Creatinine 0.94 mg/dL 0.67-1.17 BUN/Creatinine Ratio 16.0 8-20 Calcium 9.0 mg/dL 8.6-10.3 Egfr Non- 83.3 >60 Egfr 107.2 >60 17 Liver Function Panel 07/07/2013 Total Protein 6.7 g/dL 6.2-8.1 Albumin 3.8 g/dL 3.6-5.4 Globulin 2.9 g/dL 2-4 Albumin/Globulin Ratio 1.3 1-3 Total Bilirubin 0.5 mg/dL 0.4-1.5 Direct Bilirubin 0.2 mg/dL 0.1-0.5 Indirect Bilirubin 0.3 mg/dL 0.3-1.0 Alkaline Phosphatase 86 U/L 30-110 Alt 32 U/L 14-54 Ast 25 U/L 12-42 Laboratory test 07/07/2013 Hepatitis C Rna [id number] IU/mL Undetected 18 finding Quantitative Hepatitis Acute Panel 07/05/2013 Hepatitis B Surface Nonreactive Nonreactive Antigen Hepatitis B Core IgM Nonreactive Nonreactive Hepatitis A AB IgM Nonreactive Nonreactive Hepatitis C Antibody High Reactive Nonreactive 19 Laboratory test 07/05/2013 Hepatitis C Antibody High Reactive Nonreactive 20 finding Lipid Profile 07/05/2013 Triglycerides 58 mg/dL 40-200 (Trig/Chol/HDL) Cholesterol 142 mg/dL Less than 200 HDL Cholesterol 57 mg/dL 40-60 21 Cholesterol/HDL Ratio 2.5 Average 1-4.44 LDL Cholesterol 73.4 Less Than 100 22 Vitamin D, 25 Hydroxy 07/05/2013 25-Hydroxy Vitamin D2 <4.0 ng/mL 25-Hydroxy Vitamin D3 29 ng/mL 25-Hydroxy Vitamin D Total 29 ng/mL 23 Urinalysis W/Microscopic 07/05/2013 Urine Color Yellow Urine Appearance Clear Urine Specific Burdick 1.015 1.010-1.030 Urine Esterase Negative Negative Urine Nitrate Negative Negative Urine Urobilinogen Negative E.U./dL Negative Urine Protein Negative mg/dL Negative Urine pH 6.5 5-9 Urine Blood Negative Negative Urine Ketones Negative mg/dL Negative Urine Bilirubin Negative Negative Urine Glucose Negative mg/dL Negative Urine WBC 1+ (<3 /hpf) None Seen Urine RBC 1+ (<3 /hpf) None Seen Basic Metabolic Panel 07/05/2013 Sodium 137 mmol/L 133-145 Potassium 3.9 mmol/L 3.5-5.0 Chloride 101 mmol/L 101-111 Co2 Carbon Dioxide 27.0 mmol/L 22-32 Anion Gap 9.0 mmol/L 2-11 Glucose 85 mg/dL 70-100 Blood Urea Nitrogen 10 mg/dL 6-24 Creatinine 0.80 mg/dL 0.50-1.40 BUN/Creatinine Ratio 12.5 8-20 Calcium 8.5 mg/dL 8.1-9.9 Egfr Non- 100.7 >60 Egfr 129.6 >60 24 Laboratory test finding 06/20/2013 Inr 0.86 0.85-1.06 Activated Partial Thrombo Time 34.1 seconds 24.0-36.1 Comp Metabolic Panel 06/20/2013 Sodium 141 mmol/L 133-145 Potassium 3.5 mmol/L 3.5-5.0 Chloride 110 mmol/L 101-111 Co2 Carbon Dioxide 25.0 mmol/L 22-32 Anion Gap 6.0 mmol/L 2-11 Glucose 78 mg/dL 70-100 Blood Urea Nitrogen 18 mg/dL 6-24 Creatinine 0.80 mg/dL 0.50-1.40 BUN/Creatinine Ratio 22.5 High 8-20 Calcium 8.3 mg/dL 8.1-9.9 Total Protein 6.9 g/dL 6.2-8.1 Albumin 3.4 g/dL Low 3.6-5.4 Globulin 3.5 g/dL 2-4 Albumin/Globulin Ratio 1.0 1-3 Total Bilirubin 0.6 mg/dL 0.4-1.5 Alkaline Phosphatase 85 U/L 30-110 Alt 24 U/L 14-54 Ast 31 U/L 12-42 Egfr Non- 100.7 >60 Egfr 129.6 >60 25 Laboratory test finding 06/20/2013 Uric Acid 6.8 mg/dL 2.6-7.2 C Reactive Protein 1.0 mg/dL High Less than 0.5 CBC Auto Diff 06/20/2013 White Blood Count 11.8 10^3/uL High 4.8-10.8 Red Blood Count 4.79 10^6/uL 4.0-5.4 Hemoglobin 14.2 g/dL 14.0-18.0 Hematocrit 43 % 42-52 Mean Corpuscular Volume 89 fL 80-94 Mean Corpuscular Hemoglobin 30 pg 27-31 Mean Corpuscular HGB Conc 34 g/dL 31-36 Red Cell Distribution Width 16 % High 10.5-15 Platelet Count 282 10^3/uL 150-450 Mean Platelet Volume 8 um3 7.4-10.4 Abs Neutrophils 7.1 10^3/uL 1.5-7.7 Abs Lymphocytes 3.4 10^3/uL 1.0-4.8 Abs Monocytes 1.0 10^3/uL High 0-0.8 Abs Eosinophils 0.2 10^3/uL 0-0.6 Abs Basophils 0.1 10^3/uL 0-0.2 Abs Nucleated RBC 0 10^3/uL Granulocyte % 59.9 % 38-83 Lymphocyte % 29.1 % 25-47 Monocyte % 8.5 % 1-9 Eosinophil % 1.4 % 0-6 Basophil % 1.1 % 0-2 Nucleated Red Blood Cells % 0 Laboratory test finding 06/20/2013 Erythrocyte Sed Rate 23 mm/Hr High 0- 20 Comp Metabolic Panel 11/29/2011 Sodium 139 mmol/L 135-145 Potassium 3.9 mmol/L 3.5-5.0 Chloride 108 mmol/L 101-111 Co2 (Carbon Dioxide) 26.0 mmol/L 22-32 Anion Gap 5.0 mmol/L 2-11 26 Glucose 91 mg/dL 70-100 BUN 19 mg/dL 6-24 Creatinine 0.8 mg/dL 0.50-1.40 One Over Creatinine 1.25 BUN/Creatinine Ratio 23.8 High 8-20 Calcium 8.5 mg/dL 8.1-9.9 Total Protein 5.8 GM/DL Low 6.2-8.1 Albumin 3.7 GM/DL 3.6-5.4 Globulin 2.1 GM/DL 2-4 Albumin/Globulin Ratio 1.8 1-3 Bilirubin Total 0.8 mg/dL 0.4-1.5 27 Alkaline Phosphatase 82 U/L 39-117 Alt (SGPT) 21 U/L 17-63 Ast (Sgot) 29 U/L 12-42 eGFR Non- 101.5 > 60 eGFR 130.5 > 60 28 CBC Auto Diff 11/29/2011 White Blood Count 9.6 CUMM 4.8-10.8 Red Cell Count 4.59 CUMM Low 4.6-6.2 Hemoglobin 14.0 g/dL 14.0-18.0 Hematocrit 41 % Low 42-52 Mean Corpuscular Volume 89 um3 80-94 Mean Corpuscular Hemoglob 31 pg 27-31 Mean Corpuscular HGB Cone 34 g/dL 32-36 Redcell Distribution WDTH 15 % 10.5-15 Platelet Count 264 CUMM 150-450 Mean Platelet Volume 9.4 um3 7.4-10.4 Absolute Neutrophil Count 6.0 1.5-7.7 29 Lipid Profile (Trig/Chol/HDL) 11/29/2011 Triglyceride 46 mg/dL 40-200 Cholesterol 132 mg/dL Less Than 200 30 High Density Lipoprotein 60 mg/dL 40-60 31 Cholesterol/HDL Ratio 2.20 AVERAGE 1-4.97 Low Density Lipoprotein 63 mg/dL Less Than 100 32 Manual Differential 11/29/2011 Polysegmented Neutrophil 70 % 38-83 Band Neutrophil 1 % 0-8 Lymphocyte 19 % Low 25-47 Monocyte 10 % 0-13 RBC Morphology NORMAL 1 Because ethnic data is not always readily available, this report includes an eGFR for both -Americans and non- Americans. The National Kidney Disease Education Program (NKDEP) does not endorse the use of the MDRD equation for patients that are not between the ages of 18 and 70, are , have extremes of body size, muscle mass, or nutritional status, or are non- or non-. According to the National Kidney Foundation, irrespective of diagnosis, the stage of the disease is based on the level of kidney function: Stage Description GFR(mL/min/1.73 m(2)) 1 Kidney damage with normal or decreased GFR 90 2 Kidney damage with mild decrease in GFR 60-89 3 Moderate decrease in GFR 30-59 4 Severe decrease in GFR 15-29 5 Kidney failure <15 (or dialysis) 2 ADDITIONAL INFORMATION The testing method is an immunoenzymatic assay manufactured by [employer] and performed on the [employer] DxI 800. Values obtained with different assay methods or kits may be different and cannot be used interchangeably. Test results cannot be interpreted as absolute evidence for the presence or absence of malignant disease. Alpha-Fetoprotein values are not interpretable in females for the investigation of malignant disease. Test Performed by: [place] [address] 3 Therapeutic target for the treatment of diabetes Mellitus patients is <7% HBA1C, and in selective patients <6.0%.Please refer to [place] [employer] Diabetic care guidelines for further information. 4 [id number] SD 5 Because ethnic data is not always readily available, this report includes an eGFR for both -Americans and non- Americans. The National Kidney Disease Education Program (NKDEP) does not endorse the use of the MDRD equation for patients that are not between the ages of 18 and 70, are , have extremes of body size, muscle mass, or nutritional status, or are non- or non-. According to the National Kidney Foundation, irrespective of diagnosis, the stage of the disease is based on the level of kidney function: Stage Description GFR(mL/min/1.73 m(2)) 1 Kidney damage with normal or decreased GFR 90 2 Kidney damage with mild decrease in GFR 60-89 3 Moderate decrease in GFR 30-59 4 Severe decrease in GFR 15-29 5 Kidney failure <15 (or dialysis) 6 Because ethnic data is not always readily available, this report includes an eGFR for both -Americans and non- Americans. The National Kidney Disease Education Program (NKDEP) does not endorse the use of the MDRD equation for patients that are not between the ages of 18 and 70, are , have extremes of body size, muscle mass, or nutritional status, or are non- or non-. According to the National Kidney Foundation, irrespective of diagnosis, the stage of the disease is based on the level of kidney function: Stage Description GFR(mL/min/1.73 m(2)) 1 Kidney damage with normal or decreased GFR 90 2 Kidney damage with mild decrease in GFR 60-89 3 Moderate decrease in GFR 30-59 4 Severe decrease in GFR 15-29 5 Kidney failure <15 (or dialysis) 7 ADDITIONAL INFORMATION The testing method is an immunoenzymatic assay manufactured by [employer]. and performed on the [employer] DxI 800. Values obtained with different assay methods or kits may be different and cannot be used interchangeably. Test results cannot be interpreted as absolute evidence for the presence or absence of malignant disease. Alpha-Fetoprotein values are not interpretable in females for the investigation of malignant disease. Test Performed by: [place] [address] Research Quality Assurance Analyst: Jason Baldwin II, M.D., Ph.D. 8 Therapeutic target for the treatment of diabetes Mellitus patients is <7% HBA1C, and in selective patients <6.0%.Please refer to [place] [employer] Diabetic care guidelines for further information. 9 Desirable <150 Borderline high 150-199 High 200-499 Very High >500 10 Desirable <200 Borderline high 200-239 High >239 11 Low <40 Desirable: 40-60 High: >60 12 Desirable: <100 mg/dL Near Optimal: 100-129 mg/dL Borderline High: 130-159 mg/dL High: 160-189 mg/dL Very High: >189 mg/dL 13 Desirable <150 Borderline high 150-199 High 200-499 Very High >500 14 Desirable <200 Borderline high 200-239 High >239 15 Low <40 Desirable: 40-60 High: >60 16 Desirable <100 Near Optimal 100-129 Borderline high 130-159 High 160-189 Very High >189 17 Because ethnic data is not always readily available, this report includes an eGFR for both -Americans and non- Americans. The National Kidney Disease Education Program (NKDEP) does not endorse the use of the MDRD equation for patients that are not between the ages of 18 and 70, are , have extremes of body size, muscle mass, or nutritional status, or are non- or non-. According to the National Kidney Foundation, irrespective of diagnosis, the stage of the disease is based on the level of kidney function: Stage Description GFR(mL/min/1.73 m(2)) 1 Kidney damage with normal or decreased GFR 90 2 Kidney damage with mild decrease in GFR 60-89 3 Moderate decrease in GFR 30-59 4 Severe decrease in GFR 15-29 5 Kidney failure <15 (or dialysis) 18 Result in log IU/mL is 6.10. The quantification range of this assay is 15 to 100,000,000 IU/mL (1.18 log to 8.00 log IU/mL). Testing was performed by the [employer]ANDRES TaqMan HCV Test, version 2.0 ([employer] Test Performed by: [place] [address] Research Quality Assurance Analyst: Gasper Quarles III, M.D. 19 High reactive sample are considered positive for Hepatitis C 20 High reactive sample are considered positive for Hepatitis C 21 HDL Interpretation: Undesirable: High Risk: Less than 40 mg/dL Desirable: Low Risk: Greater than 60 mg/dL 22 LDL Interpretation: Low Risk Optimal Level: LDL Less than 100 mg/dL Near or Above Optimal: LDL 100-129 mg/dL Borderline High Risk: LDL 130-159 mg/dL High Risk: LDL 160-189 mg/dL Very High Risk: LDL Greater than 189 mg/dL 23 -- REFERENCE VALUE -- 25-HYDROXY D TOTAL (D2+D3) Optimum levels in the healthy population are 20-50, patients with bone disease may benefit from higher levels within this range. Test Performed by: [place] [address] Research Quality Assurance Analyst: Gasper Quarles III, M.D. 24 Because ethnic data is not always readily available, this report includes an eGFR for both -Americans and non- Americans. The National Kidney Disease Education Program (NKDEP) does not endorse the use of the MDRD equation for patients that are not between the ages of 18 and 70, are , have extremes of body size, muscle mass, or nutritional status, or are non- or non-. According to the National Kidney Foundation, irrespective of diagnosis, the stage of the disease is based on the level of kidney function: Stage Description GFR(mL/min/1.73 m(2)) 1 Kidney damage with normal or decreased GFR 90 2 Kidney damage with mild decrease in GFR 60-89 3 Moderate decrease in GFR 30-59 4 Severe decrease in GFR 15-29 5 Kidney failure <15 (or dialysis) 25 Because ethnic data is not always readily available, this report includes an eGFR for both -Americans and non- Americans. The National Kidney Disease Education Program (NKDEP) does not endorse the use of the MDRD equation for patients that are not between the ages of 18 and 70, are , have extremes of body size, muscle mass, or nutritional status, or are non- or non-. According to the National Kidney Foundation, irrespective of diagnosis, the stage of the disease is based on the level of kidney function: Stage Description GFR(mL/min/1.73 m(2)) 1 Kidney damage with normal or decreased GFR 90 2 Kidney damage with mild decrease in GFR 60-89 3 Moderate decrease in GFR 30-59 4 Severe decrease in GFR 15-29 5 Kidney failure <15 (or dialysis) 26 Anion gap measurement may be of limited value in the presence of any alkalosis, especially in a combined acid base disorder. . 27 A metabolite of Naproxen, O-desmethylnaproxen, has been shown to interfere with the [place] method for measuring total bilirubin. Samples from patients who have taken Naproxen have shown spurious elevation in total bilirubin levels. 28 Because ethnic data is not always readily available, this report includes an eGFR for both -Americans and non- Americans. The National Kidney Disease Education Program (NKDEP) does not endorse the use of the MDRD equation for patients that are not between the ages of 18 and 70, are , have extremes of body size, muscle mass, or nutritional status, or are non- or non-. According to the National Kidney Foundation, irrespective of diagnosis, the stage of the disease is based on the level of kidney function: Stage Description GFR(mL/min/1.73 m(2)) 1 Kidney damage with normal or decreased GFR 90 2 Kidney damage with mild decrease in GFR 60-89 3 Moderate decrease in GFR 30-59 4 Severe decrease in GFR 15-29 5 Kidney failure <15 (or dialysis) 29 Imm. NE 1 30 CHOLESTEROL INTERPRETATION: Desirable: Less than 200 MG/DL Borderline-High Risk: 200-239 MG/DL High-Risk: 240 MG/DL and over 31 HDL INTERPRETATION: Undesirable: High Risk: Less than 40 MG/DL Desirable: Low Risk: Greater than 60 MG/DL 32 LDL INTERPRETATION: Low Risk Optimal Level: LDL Less than 100 MG/DL Near or Above Optimal: LDL 100-129 MG/DL Borderline High Risk: LDL 130-159 MG/DL High Risk: LDL 160-189 MG/DL Very High Risk: LDL Greater than 189 MG/DL Procedures Date CPT Code Description Status 04/07/2017 85772 Arthroscopy Shoulder,W/Rotator Cuff Repair Completed 04/07/2017 56215 Arthroscopy Shoulder,W/Rotator Cuff Repair Completed 04/07/2017 24043 Arthroscopy,Shoulder Decompression Of Subacromial Space Completed W/Acromio 04/07/2017 98849 Arthroscopy,Shoulder Decompression Of Subacromial Space Completed W/Acromio 04/07/2017 17847 Arthroscopy,Shoulder,Distal Claviculectomy Incl Dist Completed Articular SR 04/07/2017 53032 Arthroscopy,Shoulder,Distal Claviculectomy Incl Dist Completed Articular SR 04/07/2017 53849 Arthroscopy Shoulder Debridement Extensive Completed 04/07/2017 75947 Arthroscopy Shoulder Debridement Extensive Completed 04/07/2017 06500 Tenodesis Biceps Long Tendon Completed 04/07/2017 36635 Tenodesis Biceps Long Tendon Completed 12/10/2016 12197 Repair Hernia Inguinal Recurrent, Reducible Completed 12/10/2016 11727 Repair Hernia Inguinal Recurrent, Reducible Completed 12/02/2016 88594 EKG, Interpretation Only Completed 10/29/201695218 Inject/Drain Joint/Bursa Major Completed 09/09/201696876 Inject/Drain Joint/Bursa Major Completed 02/07/2014 70599 Inject/Drain Joint/Bursa Major Completed 12/06/2013 07293 Xray Knee 3 Views Completed 12/06/2013 31675 Xray Knee 3 Views Completed 06/23/2013 25588 EKG Tracing & Interpretation Completed 01/23/2012 Colonoscopy Completed Encounters Type Date Location Provider CPT E/M Dx Office Visit 03/11/2017 [facility] [place] [address] S46.011A 8:00a C.[facility].A. S46.101A M19.011 M75.21 Office Visit 12/02/2016 1:30p [place], [address] K40.91 Of [facility] FACS Office Visit 10/29/2016 1:45p [facility] [place] [address] S43.084A Of [facility]. S46.011A S46.101A M75.21 M19.011 Office Visit 09/17/2016 8:00a [facility] [place] [address] S43.084A C.M.A. S46.011A S46.101A S46.111A Office Visit 09/09/2016 11:20a [facility] Internal Medicine Eleuterio Deng, 60801 J06.9 - Tito Funk Z86.19 Office Visit 09/09/2016 8:30a [facility] Pati[facility] M.D. 38753 M25.562 C.M.A. M25.561 M25.551 M25.552 M17.0 M17.12 Office Visit 09/05/2016 8:30a [facility] [place] [address] S43.084A C.M.A. M25.511 S43.004A Office Visit 01/04/2015 2:00p [facility] M.D. 86676 715.36 C.M.AKimberly 715.95 Office Visit 01/02/2015 1:40p [facility] Internal [facility] Eleuterio Deng, 72670 401.1 - Jayec Funk 070.54 790.21 Office Visit 07/05/2014 1:00p [facility] Eleuterio Deng, 08080 V70.0 - Jayce Funk 401.1 790.21 715.95 070.54 Office Visit 06/20/2014 1:00p [facility] M.D. 09052 715.95 C.M.A. 715.36 Office Visit 04/28/2014 1:30p [facility] Magdaleno Bonner 21027 715.95 Of [facility]Carmelo 715.36 Office Visit 04/14/2014 10:00a [facility] Internal [facility] Eleuterio Deng, 82989 724.2 - Jayce Funk 401.1 Office Visit 03/11/2014 8:30a [facility] M.D. 85207 715.36 C.M.A. 715.95 Office Visit 02/07/2014 9:15a [facility] M.D. 45508 715.95 C.M.A. 715.36 715.16 726.5 Office Visit 01/05/2014 2:45p [facility] M.D. 52286 715.95 C.M.A. Office Visit 12/06/2013 2:00p [facility] M.D. 63218 715.36 C.M.A. 715.16 Office Visit 10/05/2013 3:40p [facility] Internal [facility] Eleuterio Deng, 75710 401.1 - Jayce Funk v03.82 Office Visit 07/07/2013 3:40p [facility] Eleuterio Deng, 83625 401.1 - Jayce Funk V73.89 719.45 Office Visit 06/23/2013 3:40p [facility] Internal [facility] Eleuterio Deng, 56625 796.2 - Jayce Funk 719.45 V77.91 V73.89 V04.81 Office Visit 11/28/2011 3:20p [facility] Internal Medicine Eleuterio Deng, 40583 550.90 - Jayce Funk 959.09 V76.51 Plan of Care Future Appointment(s):06/26/2017 8:15 am - [facility] MD at [facility]05/27/2017 - George Alicia, MDM75.121 Complete rotatr-cuff tear /ruptr of r shoulder, not traumaFollow up:Follow up: 4 uxgthW22.21 Bicipital tendinitis, right oykylisnY20.011 Primary osteoarthritis, right shoulder
== END 2017-06-06 14:20 | disposition home or self-care (01) ==
LOC: UCEAST 13:40
DX: L72.3 Sebaceous cyst (principal); F17.210 Nicotine dependence, cigarettes, uncomplicated
CPT/HCPCS: 99212; G0463; J3301

== ENCOUNTER 2018-02-26 13:32 | Emergency (ER) | payer MEDICARE ==
[2018-02-26] MEDS ORDERED: Erythromycin TOPICAL GEL* 30 GM TUBE TOPICAL ONE (13:59)
--- NOTE | 2018-02-26 13:59 | ED ---
Throat Pain/Nasal Congestion - HPI Summary HPI Summary: 58-year-old male presents with right eye pain today. He states that it is in his right upper lid. He states that he denies any foreign body in the wound. He states he has some pain when he blinks. No discharge from his eye. No change in vision. He states he is right-handed skies especially on his left eye. Does not wear glasses or contacts. Never had this before. He states he is travel tomorrow. No medical conditions. - History of Current Complaint Chief Complaint: EDEyeProblem Time Seen by Provider: 02/26/18 13:48 - Allergies/Home Medications Allergies/Adverse Reactions: Allergies Allergy/AdvReac Type Severity Reaction Status Date / Time No Known Allergies Allergy Verified 06/06/17 13:51 PMH/Surg Hx/FS Hx/Imm Hx Endocrine/Hematology History: Denies: Hx Diabetes Cardiovascular History: Reports: Hx Hypertension Denies: Hx Pacemaker/ICD Respiratory History: Reports: Hx Sleep Apnea Denies: Hx Asthma History: Denies: Hx Renal Disease Musculoskeletal History: Reports: Hx Arthritis - hands, knees, hips, Hx Congenital Bone Abnormalities - Rickets, born bow legged Sensory History: Reports: Hx Contacts or Glasses - to drive Denies: Hx Hearing Aid Opthamlomology History: Reports: Hx Contacts or Glasses - to drive Neurological History: Reports: Hx Migraine - will take an aspirin 325mg Psychiatric History: Denies: Hx Panic Disorder - Cancer History Hx Chemotherapy: No - Surgical History Surgery Procedure, Year, and Place: & SURGERIES ON BOTH LEGS DUE TO DEFECT [facility]. UMBILICAL HERNIA [facility]. LEFT KNEE SCOPE ANUPAM. 12/2011 BILATERAL INGINAL HERNIA REPAIRS-SEVERAL TIMES [facility]. 2017 right inguinal hernia repair with mesh. Right Shoulder Surgery Hx Anesthesia Reactions: No Infectious Disease History: No Infectious Disease History: Reports: Hx Hepatitis - Hep C Denies: Traveled Outside the [place] in Last 30 Days - Family History Known Family History: Positive: Hypertension Negative: Cardiac Disease, Diabetes - Social History Alcohol Use: Occasionally Alcohol Amount: 1-2 drinks a week Hx Substance Use: No Substance Use Type: Reports: None Hx Tobacco Use: Yes Smoking Status (MU): Former Smoker Type: Cigarettes Amount Used/How Often: 6-7cig/day Have You Smoked in the Last Year: Yes - quit 1 month ago Review of Systems Negative: Fever Positive: Other - right eye swelling Negative: Chest Pain Negative: Shortness Of Breath All Other Systems Reviewed And Are Negative: Yes Physical Exam Triage Information Reviewed: Yes Vital Signs On Initial Exam: Initial Vitals Temp Pulse Resp BP Pulse Ox 97.7 F 74 14 154/95 95 02/26/18 13:44 02/26/18 13:44 02/26/18 13:44 02/26/18 13:44 02/26/18 13:44 Vital Signs Reviewed: Yes Appearance: Positive: Well-Appearing Skin: Positive: Warm, Dry Head/Face: Positive: Normal Head/Face Inspection Eyes: Positive: EOMI, MAGED, Conjunctiva Clear, Other: - small stye on upper lid right eye ENT: Positive: Normal ENT inspection, Pharynx normal, TMs normal Respiratory/Lung Sounds: Positive: Clear to Auscultation, Breath Sounds Present Cardiovascular: Positive: Normal, RRR Musculoskeletal: Positive: Normal Neurological: Positive: Normal Psychiatric: Positive: Normal Diagnostics - Vital Signs Vital Signs Temp Pulse Resp BP Pulse Ox 02/26/18 13:44 97.7 F 74 14 154/95 95 - Laboratory Lab Statement: Any lab studies that have been ordered have been reviewed, and results considered in the medical decision making process. EENT Course/Dx - Course Course Of Treatment: 58-year-old male presents with right eye pain today. He states that it is in his right upper lid. He states that he denies any foreign body in the wound. He states he has some pain when he blinks. No discharge from his eye. No change in vision. He states he is right-handed skies especially on his left eye. Does not wear glasses or contacts. Never had this before. He states he is travel tomorrow. No medical conditions. on exam has small stye right eye. normal conjuctive. told to place heat on area. will give script for erythrmoycin. patient understand and agrees with plan. - Differential Diagnoses Differential Diagnoses: Conjunctivitis, Corneal Abrasion, Other - stye - Diagnoses Provider Diagnoses: Hordeolum of right eye Discharge - Sign-Out/Discharge Documenting (check all that apply): Patient Departure - Discharge Plan Condition: Good Disposition: HOME Patient Education Materials: Toyin (ED) Referrals: Eleuterio Deng MD [Primary Care Provider] - Additional Instructions: apply heat to area apply ointment to area three times a day until resolves Return to ED if develop any new or worsening symptoms - Billing Disposition and Condition Condition: GOOD Disposition: Home
[2018-02-26] MEDS ORDERED: Erythromycin OPTH OINT* APPLIC OINT ONE ×2 (14:04→15:00)
[2018-02-26 14:14] VITALS: BP 150/84
== END 2018-02-26 14:13 | disposition home or self-care (01) ==
LOC: ED 13:32
DX: H00.011 Hordeolum externum right upper eyelid (principal); Z87.891 Personal history of nicotine dependence; I10 Essential (primary) hypertension; B19.20 Unspecified viral hepatitis C without hepatic coma
CPT/HCPCS: 99281; A9270-GY

== ENCOUNTER → 2018-07-07 05:38 | Day surgery (SDC) | payer MEDICARE ==
--- NOTE | 2018-06-22 07:02 | HP ---
CC: Dr. Eleuterio Deng * ADMISSION HISTORY AND PHYSICAL: DATE OF ADMISSION: 07/07/18. ATTENDING SURGEON: Dr. Piter Cohn * (CEE Lara dictating). CHIEF COMPLAINT: Umbilical hernia. HISTORY OF PRESENT ILLNESS: This is a 58-year-old male who has undergone multiple prior hernia repairs, who beginning a few weeks ago noted pain at the umbilical area. This increases with activity and he has therefore, had to modify his daily activities accordingly. He denies any specific GI or symptoms. He did undergo primary repair of an umbilical hernia in 2010 and has subsequently undergone laparoscopic repair of bilateral inguinal hernias (as well as open repair of recurrent inguinal hernias). He was seen in the office on 05/21/[address] Cohn. At that time, a small nonreducible tender mass was palpated at the umbilicus and felt to be consistent with an umbilical hernia. Dr. Cohn has discussed with him the indications for surgery, the risks, benefits and alternatives and he would like to proceed and schedule with open repair umbilical hernia with mesh. PAST MEDICAL HISTORY: Hypertension, arthritis. PAST SURGICAL HISTORY: His previous surgeries have included the aforementioned hernias including most recently an open repair of recurrent right inguinal hernia in 2017 with mesh. He has undergone bilateral knee arthroscopies and bilateral lower extremity surgeries related to rickets as a child. He underwent right rotator cuff repair in March 2017. No reported surgical or anesthesia complications. CURRENT MEDICATIONS: 1. Chlorthalidone 25 mg once daily. 2. Gabapentin 600 mg t.i.d. 3. Naproxen 500 mg b.i.d. DRUG ALLERGIES: None known. FAMILY HISTORY: Negative for anesthesia problems, bleeding or clotting disorders. SOCIAL HISTORY: The patient lives alone, though does have family support. 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 He is a former smoker of up to one-half pack per day for 30 years, he quit within the past year. He drinks alcohol occasionally, but less than or equal to 1 drink per day. He denies any other recreational drug use. REVIEW OF SYSTEMS: General: No recent constitutional symptoms or acute illnesses other than described in the HPI. HEENT: No problems or changes noted. Cardiovascular: No chest pain, palpitations, history of AR or angina. Respiratory: No shortness of breath or chronic cough. Smoking history as noted. GI: No problems reported. Last colonoscopy approximately 9 years ago with a recommended 10-year followup and no interval symptoms of concern. : No problems reported. Endocrine: No diabetes or thyroid dysfunction. PHYSICAL EXAMINATION GENERAL: Well-nourished, well-developed male, in no acute distress. VITAL SIGNS: Height 62 inches, weight 213 pounds. Blood pressure 128/88, pulse 72, respirations 18. HEENT: Pupils equal and round, reactive. EOMs intact. No conjunctival pallor. Oropharynx: The patient has full upper and lower dentures. No intraoral lesions. NECK: No lymphadenopathy, thyromegaly or masses. LUNGS: Clear to auscultation. No rales or wheezes. HEART: Regular rate and rhythm. No murmur noted. ABDOMEN: Soft, nontender to palpation other than a small area of tenderness at the superior portion of the umbilicus. There were multiple well-healed surgical scars including above and below the umbilicus as well as in both groins. No other palpable masses or areas of tenderness. GENITALIA: Otherwise not examined. RECTAL: Not done. BACK: No spinous process or CVA tenderness. EXTREMITIES: No edema. SKIN: Warm and dry. No suspicious rashes or lesions. NEUROLOGICAL: Grossly intact. IMPRESSION: Umbilical hernia. PLAN: Open repair of umbilical hernia with mesh. CEE LARA [id number]/[facility] #: [id number] MTDJameson
[~2018-07-07 05:38] MED LIST changes: -Buffered Lidocaine 0.9% SYRIN* 5 ML/SYR SYRINGE INTRADERM ONE; +Buffered Lidocaine 1% SYRIN* 1 ML/SYRINGE INTRADERM ONE; +Bupivacaine 0.5% W/EPI SDV* 30 ML VIAL ONE; +Dexamethasone IV* 4 MG/ML 1 ML (4 MG) IV SLOW PU ONE; +Dexamethasone IV* 4 MG/ML 1 ML (4 MG) ONE; +Famotidine IV* 10 MG/ML 2 ML (20 mg) ONE; +Lactated Ringers 1000 ML Bag* 1,000 ML IV SCH; +Lidocaine 1% INJ* 10 MG/ML 30 ML SDV ONE; +Lidocaine 2% PF * 5 ML VIAL ONE; +Midazolam* 1 MG/ML 2 ML VIAL (2 MG) ONE; -Morphine INJ* 2 MG/ML 1 ML SYRINGE IV PRN; +Naloxone* 0.4 MG/ML 1 ML VIAL IV PRN; +Ondansetron INJ* 2 MG/ML VIAL IV PRN; -PROCHLORPERAZINE INJ 5 MG/ML 2 ML VIAL IV PRN; +Propofol* 10 MG/ML 20 ML BTL ONE; +ceFAZolin 2 GM PREMIX in ORs 2 GM/50 ML BAG IVPB ONE; -fentaNYL* 50 MCG/ML 2 ML VIAL (100 MCG VIAL) IV PRN; +fentaNYL* 50 MCG/ML 2 ML VIAL (100 MCG VIAL) ONE; -oxyCODONE/Acetamin 5/325 MG* TAB PO PRN
--- NOTE | 2018-07-07 08:21 | OP ---
Operative Report - Blank - Operative Report Date of Operation: 07/07/18 Note: Brief Operative Note Preop Dx: Recurrent umbilical hernia Postop Dx: same Procedure: open repair umbilical hernia with mesh Anesthesia: local MAC Surgeon: Lalit Lathe Turner: DENISE Powell Fluids: 600 ml RL EBL: none Specimen: none Drains: none Findings: dictated
[2018-07-07 09:03] VITALS: BP 123/77
--- NOTE | 2018-07-07 21:56 | OP ---
CC: Eleuterio Deng MD * DATE OF OPERATION: 07/07/18 - SDS DATE OF : 58 SURGEON: Piter Cohn MD GLASS BLOCK BENDER: CEE Vinson student. ANESTHESIOLOGIST: Dr. Jacobs. ANESTHESIA: Local MAC. PRE-OP DIAGNOSIS: Recurrent umbilical hernia. POST-OP DIAGNOSIS: Recurrent umbilical hernia. OPERATIVE PROCEDURE: Open repair recurrent umbilical hernia with mesh. ESTIMATED BLOOD LOSS: Minimal. IV FLUIDS: 600 mL crystalloid. SPECIMEN: None. DRAINS: None. COMPLICATIONS: None. COUNTS: Instrument, needle, and sponge counts were correct. DESCRIPTION OF PROCEDURE: The patient was brought to the operating room and placed on the table supine. Sequential compression devices were placed on both lower extremities. General anesthesia was administered. The abdomen was prepped and draped in the usual sterile fashion. Appropriate antibiotics were administered. Time-out was performed. Local anesthetic was infiltrated into the skin and soft tissue periumbilically. An incision was created in a curvilinear fashion through the previous supraumbilical scar. The subcutaneous tissues were divided and a 1 cm umbilical hernia defect was identified. The umbilical stalk was divided off the anterior abdominal wall and there was noted to be Prolene suture in the fascia. This was cut and removed. There was a small bridge of tissue between the initial identified defect and a smaller defect just caudad to that. The bridge of tissue was divided and then this was noted to be a 2 cm defect. Blunt dissection was performed in the preperitoneal space to create room for the Ventralex ST hernia patch small size was placed into the defect and the central straps were drawn up. The mesh was sutured to the fascia inferiorly and superiorly with interrupted 0 Ethibond suture. The mesh straps were cut. The defect was then closed with two [id number] sutures using the 3-0 Ethibond suture. The umbilical stalk was reapproximated to the anterior abdominal wall with 3-0 Vicryl. The skin incision was closed with 3-0 Vicryl for the deep dermis and 4-0 Monocryl for the skin edge running in the subcuticular fashion. DermaFlex was applied. The patient tolerated the procedure well and was transferred to Recovery in stable condition. [id number]/[facility] #: [id number] [facility]
== END | disposition home or self-care (01) ==
LOC: OR 05:38
PROVIDERS: ATTEND Surgery
DX: K42.9 Umbilical hernia without obstruction or gangrene (principal); I10 Essential (primary) hypertension; Z87.891 Personal history of nicotine dependence; M19.90 Unspecified osteoarthritis, unspecified site; Z68.36 Body mass index [BMI] 36.0-36.9, adult; B19.20 Unspecified viral hepatitis C without hepatic coma
CPT/HCPCS: C1781; J0690; J1100; J2250; J2704; J3010